=== PATIENT | female | born 2000 | race Caucasian/White ===

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

== ENCOUNTER 2021-04-09 20:33 | Emergency (ER) | payer BC ==
[~2021-04-09] VITALS: Ht 157.5 cm; Wt 56.8 kg
[~2021-04-09 20:33] MED LIST changes: +CEFTIN500 MG PO
[2021-04-09 20:46] VITALS: TEMP 98
[2021-04-09 21:23] LABS: BASO % 0.6 % (0.0-2.0); EOS # 0.1 K/mm3 (0.0-0.7); EOS % 1.4 % (0-4.0); GRAN # 3.5 K/mm3 (1.4-6.5); GRAN % 55.2 % (42.2-75.2); HEMOGLOBIN 12.9 g/dl (12.0-15.0); LYMPH # 2.2 K/mm3 (1.2-3.4); LYMPH % 35.4 % (20.0-51.0); MEAN CELL VOLUME 85 fl (80.0-95.0); MEAN CORPUSCULAR HEMOGLOBIN 30 pg (26.0-32.0); MEAN CORPUSCULAR HGB CONC 35 g/dl (33.0-37.0); MEAN PLATELET VOLUME 10.1 fl (7.4-10.4); MONO # 0.5 K/mm3 (0.1-0.6); MONO % 7.1 % (1.7-9.3); PLATELET COUNT 304 K/mm3 (130-400); RED BLOOD COUNT 4.32 M/mm3 (4.10-5.30); REDCELL DISTRIBUTION WIDTH-CV 11.6 % (11.5-14.5)
[2021-04-09 21:24] LABS: HEMATOCRIT 36.5 % (35.0-45.0)
[2021-04-09 21:39] LABS: ACETONE,SERUM NEGATIVE
[2021-04-09 21:49] LABS: ALBUMIN 4.2 gm/dL (3.5-5.0); ALKALINE PHOSPHATASE 87 U/L (40-150); ANION GAP 13 mmol/L (7-16); AST,SGOT 10 U/L (5-34); BILIRUBIN,TOTAL 0.5 mg/dL (0.2-1.2); BLOOD UREA NITROGEN 9 mg/dL (8-21); C-REACTIVE PROTEIN 0.14 mg/dL (0.00-0.50); CALCIUM 9.8 mg/dL (8.4-10.2); CARBON DIOXIDE 21 mmol/L (22-29); CHLORIDE 94 mmol/L (98-107); CREATININE, serum 1.14 mg/dL (0.57-1.11); SODIUM 128 mmol/L (136-145); TOTAL PROTEIN 7.4 gm/dL (6.2-8.1)
[2021-04-09 21:50] LABS: ALANINE AMINOTRANSFERASE < 6 U/L (0-55)
[2021-04-09 21:51] LABS: GLUCOSE 673 mg/dL (70-99)
[2021-04-09 22:22] LABS: COLLECTION METHOD CLEAN CATCH
[2021-04-09 22:34] LABS: PH 6 (5-8); SQUAMOUS EPITHELIAL 0-2 /hpf (0-10); URINE APPEARANCE Clear (CLEAR/HAZY); URINE BACTERIA None Seen (NONE SEEN); URINE BILIRUBIN Negative (NEGATIVE); URINE BLOOD Negative (NEGATIVE); URINE COLOR Colorless (YELLOW); URINE GLUCOSE 3+ (NEGATIVE); URINE KETONE Negative (NEGATIVE); URINE LEUKOCYTE ESTERASE Trace (NEGATIVE); URINE NITRATE Negative (NEGATIVE); URINE PROTEIN(semi-quant) Negative (NEGATIVE); URINE RBC 0-2 /hpf (0-2); URINE UROBILINOGEN Negative (NEGATIVE)
[2021-04-10] MEDS ORDERED: NORCO 325 MG-51 TAB PO (01:05)
[2021-04-10 01:16] VITALS: BP 112/70; PULSE 80
== END 2021-04-10 01:16 | disposition home or self-care (01) ==
LOC: COL.ER 20:33
PROVIDERS: Family Medicine
DX: M54.9 Dorsalgia, unspecified (principal); E10.10 Type 1 diabetes mellitus with ketoacidosis without coma
CPT/HCPCS: J0696; J1815; J1885; J2270; J2405; J7030; Q9967